=== PATIENT | female | born 1970 | race African-American/Black ===

== ENCOUNTER 2016-12-31 20:12 | Emergency (ER) | payer OTHER ==
[~2016-12-31] VITALS: Ht 157.5 cm; Wt 138.5 kg
[~2016-12-31 20:12] MED LIST: LISI-587 PO; METF500 PO
[2016-12-31 20:27] VITALS: BP 155/89; PULSE 85; RESP 16; TEMP 98.4; O2SAT 100
[2016-12-31] MEDS ORDERED: PRED10 PO (21:20)
--- NOTE | 2016-12-31 21:24 | PD ---
HPI Chief Complaint: Facial Pain or Swelling Time Seen by Provider: 21:00 Travel History International Travel<30 days: No Contact w/Intl Traveler<30days: No Traveled to known affect area: No History of Present Illness HPI 46 year-old female presents to the emergency room for evaluation of bilateral upper lid swelling that has been ongoing for the past month. Patient went to her primary care physician who prescribed Claritin but that didn't seem to help. Primary care physician then referred her to an bill adjuster and branch specialist. The bill adjuster released her from care. The branch specialist gave her low-dose, short course of steroids which is the only thing that seemed to have improved her symptoms. Patient states her thyroid has been checked within the past month and was normal. States what brought her in tonight was bilateral eye burning. She denies any allergy exposures. Patient denies shortness of breath, chest pain, sore throat, or difficulty breathing. Patient denies eye pain, drainage, foreign body sensation, or changes in visual acuity. PFSH Past Medical History Arthritis: Yes Autoimmune Disease: No Blood Disorders: No Cancer: No Cardiovascular Problems: Yes (HTN) Chest Pain: Yes Diabetes: Yes Patient Takes Glucophage: No Diminished Hearing: No Endocrine: Yes Gastrointestinal Disorders: Yes Genitourinary: No Hiatal Hernia: No Hypertension: Yes Immune Disorder: No Musculoskeletal: Yes (ARTHRITIS ) Neurologic: No Psychiatric: No Reproductive: No Respiratory: No Thyroid Disease: No ?: Not Tubal Ligation: Yes Past Surgical History Abdominal Surgery: Yes (3 ) Arteriovenous Shunt: No Cardiac Surgery: No Section: Yes Ear Surgery: No Endocrine Surgery: No Eye Surgery: No Genitourinary Surgery: No Gynecologic Surgery: Yes ( x 3) Insulin Pump: No Joint Replacement: Yes (BILATERAL HIP REPLACEMENTS) Neurologic Surgery: No Oral Surgery: No Pacemaker: No Thoracic Surgery: No Other Surgery: Yes (bilateral hip replacement) Social History Alcohol Use: No Tobacco Use: No Substance Use: No Allergies-Medications (Allergen,Severity, Reaction): Coded Allergies: *MDRO Multi-Drug Resistant Organism (Unverified Adverse Reaction, Unknown , 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 Afebrile. Ambulatory. SKIN: Focused skin assessment warm/dry. HEAD: Normocephalic. EYES: No scleral icterus. No injection or drainage. Fluorescein staining reveals no ulceration, abrasion, or foreign body to bilateral eyes. NECK: Supple, trachea midline. No JVD or lymphadenopathy. CARDIOVASCULAR: Regular rate and rhythm without murmurs, gallops, or rubs. RESPIRATORY: Breath sounds equal bilaterally. No accessory muscle use. PSYCHIATRIC: No delusional thought processes. No hallucinations. Data Data Last Documented VS Vital Signs Date Time Temp Pulse Resp B/P Pulse Ox O2 Delivery O2 Flow Rate FiO2 12/31/16 20:27 98.4 85 16 155/89 100 MDM Medical Decision Making Medical Screen Exam Complete: Yes Emergency Medical Condition: Yes Medical Record Reviewed: Yes Differential Diagnosis Angioedema, myxedema coma, blepharochalasis, allergies Narrative Course 46-year-old female presents to the emergency room for evaluation of bilateral upper lid swelling for one month. Patient has been seen by primary care physician, bill adjuster, and branch specialist for this. Been prescribed allergy medication but steroids is the only thing that helps. States her thyroid was checked one month ago and was normal. Denies any new allergy exposures. Denies signs and symptoms of angioedema or anaphylaxis. She is afebrile and well-appearing in the emergency room. Denies eye pain, injection, decreased visual acuity, drainage, or foreign body sensation. Physical exam reveals bilateral upper eyelid edema without erythema. Nontender. Differential includes blepharochalasis. Patient has history of prediabetes states her sugars are always very normal. She'll be given a short course of low dose steroids and told to follow-up with bill adjuster or return for worsening symptoms. She understands and agrees to plan. Diagnosis Primary Impression: Superficial swelling of eyelid Referrals: Primary Care Physician Patient Instructions: Allergies (ED), General Instructions Additional Instructions: Rest and drink plenty of fluids. Steroids as directed, until gone. Do not eat high sugar or carb foods while taking this medication. Follow-up with an bill adjuster. Return to the emergency room for worsening symptoms. Med/Other Pt SpecificInfo: Prescription(s) given Scripts Prednisone 10 Mg Tab10 Mg PO DAILY 5 Days Ref 0 Prov:Victor M Braxton MD 12/31/16 Disposition: 01 DISCHARGE HOME Condition: Stable Abeba Lieberman Dec 31, 2016 21:24
== END 2016-12-31 21:31 | disposition home or self-care (01) ==
LOC: PHEFT 20:12
DX: H02.844 Edema of left upper eyelid (principal); H02.841 Edema of right upper eyelid; M19.90 Unspecified osteoarthritis, unspecified site; I10 Essential (primary) hypertension; E11.9 Type 2 diabetes mellitus without complications; E66.01 Morbid (severe) obesity due to excess calories; Z96.643 Presence of artificial hip joint, bilateral
CPT/HCPCS: 99283